=== PATIENT | female | born 1940 | race Caucasian/White ===

== ENCOUNTER 2017-04-08 15:26 | Observation (INO) ==
[2017-04-08] MEDS ORDERED: Aspirin 81 MG TAB.CHEW PO ONE (15:49)
[2017-04-08] MEDS ORDERED: Nitroglycerin 0.4 MG TAB.SUBL SL ONE (15:49)
--- NOTE | 2017-04-08 15:51 | Emergency Department Note ---
Disposition Clinical Impression: History of lung cancer Chest pain Qualifiers: Chest pain type: unspecified Qualified Code(s): R07.9 - Chest pain, unspecified Disposition: Admitted As Inpatient Condition: Good Referrals: NONE,PCP [Primary Care Provider] - Forms: ED Satisfaction Letter General Adult HPI - General Chief complaint: ED Chest Pain Stated complaint: chest discomfort CP Time Seen by Provider: 04/08/17 15:39 Source: patient Limitations: no limitations Nursing Notes Reviewed: Yes Vital Signs Reviewed: Yes - History of Present Illness HPI Narrative: 76 y/o female who reports 2 days of substernal chest discomfort. She reports it feels like "really bad indigestion". She reports feeling this a couple of years ago which ended up being a MS requiring a stent. Her other medical problems include HTN and HLD and lung cancer. She has had recurrent lung cancer with a right upper lobe resection. She is currently inoperable and her tumor size has reduced as of her last CT. Current oncologist is Dr Mejia in [place]. Not a diabetic. She took nitro at home which helped her pain. She currently is having a 4/10 pain. She is on 3L of O2 at all times. Radiation: non-radiation Pain Severity: moderate Pain Scale: 4 Consistency: intermittent Improves with: nothing Worsens with: nothing - Related Data Home Medications Medication Instructions Recorded Confirmed Albuterol Sulfate [Ventolin Hfa] 18 gm IH 05/26/16 Budesonide/Formoterol 160/4.5 2 puff IH BIDR 05/26/16 05/26/16 [Symbicort 160/4.5] Clopidogrel [Plavix] 75 mg PO DAILY 05/26/16 05/26/16 Furosemide [Lasix] 20 mg PO 05/26/16 Lisinopril [Zestril] 20 mg PO BID 05/26/16 05/26/16 Metoprolol Tartrate 100 mg PO BID 05/26/16 05/26/16 Rosuvastatin Calcium [Crestor] 10 mg PO 05/26/16 Allergies Allergy/AdvReac Type Severity Reaction Status Date / Time No Known Allergies Allergy Verified 04/08/17 15:35 All systems ED: reviewed and negative except as stated. Constitutional: Denies: fever ENT ED: Denies: throat pain Cardiovascular: Reports: chest pain Gastrointestinal: Denies: abdominal pain Musculoskeletal: Denies: back pain Integumentary: Denies: rash Neurological: Denies: headache Endocrine: Reports: fatigue Past Medical History - Past Medical History Medical history: Reports: cancer, COPD, hyperlipidemia, hypertension, valvular heart disease Surgical history: Reports: other (Bilateral lens implants) Psychiatric history: Reports: no psych history - Social History Smoking Status: Former smoker Smokeless Tobacco Status: No Alcohol use: Reports: none Drug use: Reports: none Physical Exam - General Limitations: no limitations General appearance: alert, in no apparent distress - Head Head exam: atraumatic - Eye Eye exam: Present: normal appearance - ENT ENT exam: normal exam - Neck Neck exam: Present: normal inspection - Chest Chest inspection: Present: other (right sided scar consistent with lung resection) - Respiratory Respiratory exam: Present: normal lung sounds bilaterally. Absent: respiratory distress - Cardiovascular Cardiovascular exam: Present: regular rate, normal rhythm - Abdominal Exam Abdominal exam: Present: soft, Non-Tender - Extremities Exam Extremities exam: Present: normal inspection - Neurological Exam Neurological exam: Present: alert, oriented X3 - Psychiatric Psychiatric exam: Present: normal affect, normal mood - Skin Skin exam: Present: warm, dry Course Course Narrative: EKG shows old anterior Q waves w/o current ST changes. No T wave inversions. She is not diaphoretic and appears well. Will do cardiac workup and a D dimer and CXR. D dimer is 673 which is normal for a 76 year old female according to the age adjusted D-dimer. As she is not hypoxic and she is low risk, PE has effectively been ruled out. Troponin is 0.00. Will be admitted to the hospital for a CP rule out. Accepted by Marybeth Morgan for admission. Vital Signs Temperature 97.8 F 04/08/17 15:29 Pulse Rate 67 04/08/17 15:29 Respiratory Rate 20 04/08/17 15:29 Blood Pressure 185/85 04/08/17 15:29 O2 Sat by Pulse Oximetry 96 04/08/17 15:29 Temperature 97.8 F 04/08/17 15:29 Pulse Rate 62 04/08/17 17:25 Respiratory Rate 14 04/08/17 17:25 Blood Pressure 165/80 04/08/17 17:25 O2 Sat by Pulse Oximetry 95 04/08/17 17:25 Oxygen Delivery Oxygen Delivery Nasal Cannula Medical Decision Making - Medical Records Medical records reviewed: Yes I reviewed the patient's medical records. - Lab Data Lab results reviewed: Yes I reviewed the patient's lab results. Result diagrams: 04/08/17 16:52 04/08/17 16:52 Lab Results 04/08/17 04/08/17 04/08/17 Range/Units 16:52 16:52 16:52 WBC (4.3-11.1) K/mcL RBC (3.82-4.97) M/mcL Hgb (11.5-15.4) g/dL Hct (35.3-44.9) % MCV (83.0-100.0) fL MCH (28.0-33.3) pg MCHC (31.6-35.5) g/dL RDW (11.5-14.5) % Plt Count (140-400) K/mcL MPV (9.4-12.4) fL Immature Gran % (0-4) % Seg Neutrophils % % Lymphocytes % % Monocytes % % Eosinophils % % Basophils % % Neutrophils # (1.6-8.9) K/mcL Lymphocytes # (0.6-4.6) K/mcL Monocytes # (0.0-1.3) K/mcL Eosinophils # (0.0-0.6) K/mcL Basophils # (0.0-0.2) K/mcL PT 10.5 (9.4-12.1) Seconds INR 1.0 APTT 28.0 (26.0-36.0) Seconds D-Dimer 673 H (0-500) ng/mLFEU Sodium 140 (136-145) mEq/L Potassium 3.5 (3.5-4.5) mEq/L Chloride 98 (98-109) mEq/L Carbon Dioxide 33 H (19-29) mEq/L BUN 17 (7-20) mg/dL Creatinine 0.93 (0.57-1.11) mg/dL Est GFR ( Amer) > 60 (> 60) Est GFR (Non-Af Amer) 59 L (> 60) BUN/Creatinine Ratio 18 (6-26) Glucose 149 H (70-99) mg/dL Calculated Osmolality 294 (280-300) Calcium 9.7 (8.6-10.8) mg/dL Total Bilirubin 0.4 (0.2-1.2) mg/dL Direct Bilirubin 0.2 (0.0-0.5) mg/dL Indirect Bilirubin 0.2 (0.0-1.2) mg/dL AST 19 (5-34) Units/L ALT 18 (0-55) Units/L Alkaline Phosphatase 128 H (38-126) Units/L Troponin I (0-0.03) ng/mL B-Natriuretic Peptide 195 H (0-100) pg/mL Serum Total Protein 6.9 (6.0-8.3) g/dL Albumin 3.2 L (3.5-5.0) g/dL Globulin 3.7 H (2.4-3.5) g/dL Albumin/Globulin Ratio 0.9 L (1.1-2.2) Amylase 55 (25-125) Units/L 04/08/17 04/08/17 Range/Units 16:52 16:52 WBC 4.6 (4.3-11.1) K/mcL RBC 4.49 (3.82-4.97) M/mcL Hgb 13.0 (11.5-15.4) g/dL Hct 40.8 (35.3-44.9) % MCV 90.9 (83.0-100.0) fL MCH 29.0 (28.0-33.3) pg MCHC 31.9 (31.6-35.5) g/dL RDW 13.0 (11.5-14.5) % Plt Count 157 (140-400) K/mcL MPV 10.9 (9.4-12.4) fL Immature Gran % 0.4 (0-4) % Seg Neutrophils % 66.3 % Lymphocytes % 26.2 % Monocytes % 5.6 % Eosinophils % 1.1 % Basophils % 0.4 % Neutrophils # 3.1 (1.6-8.9) K/mcL Lymphocytes # 1.2 (0.6-4.6) K/mcL Monocytes # 0.3 (0.0-1.3) K/mcL Eosinophils # 0.1 (0.0-0.6) K/mcL Basophils # 0.0 (0.0-0.2) K/mcL PT (9.4-12.1) Seconds INR APTT (26.0-36.0) Seconds D-Dimer (0-500) ng/mLFEU Sodium (136-145) mEq/L Potassium (3.5-4.5) mEq/L Chloride (98-109) mEq/L Carbon Dioxide (19-29) mEq/L BUN (7-20) mg/dL Creatinine (0.57-1.11) mg/dL Est GFR ( Amer) (> 60) Est GFR (Non-Af Amer) (> 60) BUN/Creatinine Ratio (6-26) Glucose (70-99) mg/dL Calculated Osmolality (280-300) Calcium (8.6-10.8) mg/dL Total Bilirubin (0.2-1.2) mg/dL Direct Bilirubin (0.0-0.5) mg/dL Indirect Bilirubin (0.0-1.2) mg/dL AST (5-34) Units/L ALT (0-55) Units/L Alkaline Phosphatase (38-126) Units/L Troponin I 0.00 (0-0.03) ng/mL B-Natriuretic Peptide (0-100) pg/mL Serum Total Protein (6.0-8.3) g/dL Albumin (3.5-5.0) g/dL Globulin (2.4-3.5) g/dL Albumin/Globulin Ratio (1.1-2.2) Amylase (25-125) Units/L - Radiology Data Radiology results reviewed: Yes I reviewed the patient's radiology results. - EKG Data EKG #1 EKG attestation: Yes I reviewed and interpreted this EKG. EKG shows normal: sinus rhythm Rate: normal Rhythm: NSR Q waves: v1, v2, v3 When compared to previous EKG there are: no significant changes Interpretation: unchanged when compared to prior tracing (date)
--- NOTE | 2017-04-08 16:41 | Emergency Department Note ---
START Narrative - START START: I examined this patient and my medical decision-making was reviewed with the Resident Physician. I agree with the documented findings, disposition and treatment plan as described except to the extent set forth below. 76 showed female presents emergency room for 2-3 day history of chest discomfort. She describes this as more of an indigestion type feeling. Similar to her previous heart problems. She has no active chest pain. States sometimes she has some pressure in her chest. EKG was nondiagnostic. The patient will need be admitted for further observation and workup of this chest pain and chest discomfort.
[2017-04-08 17:05] LABS: Basophils % 0.4 %; Eosinophils # 0.1 K/mcL (0.0-0.6); Eosinophils % 1.1 %; Hematocrit 40.8 % (35.3-44.9); Immature Granulocytes % 0.4 % (0-4); Lymphocytes # 1.2 K/mcL (0.6-4.6); Lymphocytes % 26.2 %; Mean Corpuscular HGB Conc 31.9 g/dL (31.6-35.5); Mean Corpuscular Volume 90.9 fL (83.0-100.0); Mean Platelet Volume 10.9 fL (9.4-12.4); Monocytes # 0.3 K/mcL (0.0-1.3); Monocytes % 5.6 %; Neutrophils # 3.1 K/mcL (1.6-8.9); Platelet Count 157 K/mcL (140-400); Red Blood Count 4.49 M/mcL (3.82-4.97); Segmented Neutrophils % 66.3 %
[2017-04-08 17:10] LABS: Prothrombin Time 10.5 Seconds (9.4-12.1)
[2017-04-08 17:20] LABS: Alanine Aminotransferase 18 Units/L (0-55); Albumin 3.2 g/dL (3.5-5.0); Albumin/Globulin Ratio 0.9 (1.1-2.2); Alkaline Phosphatase 128 Units/L (38-126); Amylase 55 Units/L (25-125); Aspartate Amino Transferase 19 Units/L (5-34); BUN/Creatinine Ratio 18 (6-26); Bilirubin,Direct 0.2 mg/dL (0.0-0.5); Bilirubin,Indirect 0.2 mg/dL (0.0-1.2); Bilirubin,Total 0.4 mg/dL (0.2-1.2); Blood Urea Nitrogen 17 mg/dL (7-20); Calcium 9.7 mg/dL (8.6-10.8); Carbon Dioxide 33 mEq/L (19-29); Chloride 98 mEq/L (98-109); Globulin 3.7 g/dL (2.4-3.5); Glucose 149 mg/dL (70-99); Osmolality,Calculated 294 (280-300); Potassium 3.5 mEq/L (3.5-4.5); Sodium 140 mEq/L (136-145); Total Protein 6.9 g/dL (6.0-8.3); eGFR For African Americans > 60 (> 60); eGFR For Non-African Americans 59 (> 60)
[2017-04-08] MEDS ORDERED: Naloxone 0.4 MG/ML INJ IVP PRN (21:28)
--- NOTE | 2017-04-08 22:58 | Internal Med History&Physical ---
<Marybeth Morgan - Last Filed: 04/08/17 23:17> Date of Encounter: 04/08/17 Time of Encounter: 22:49 Assessment and Plan (1) Chest pain Current visit: Yes Status: Acute 1 she is experiencing substernal chest pain for the past 2 days describing it as really bad indigestion. She has a history of AR in the past with 2 stent placement. She also strong family history of cardiac disease with several brothers dying of AR, most recent sibling this January. Both parents with history of AR. History of hypertension hyperlipidemia. First troponin is 0 we will continue to trend 2 we will obtain cardiac echo 3 continue his cardiac monitoring 4 we will obtain a CTA to rule out possibility of PE-patient is high risk with history of cancer, 2 day history of shortness of breath and chest pain, d-dimer 673. 5 continue with Plavix and statin and beta osiel 6. If negative for PE we will perform cardiac stress test Qualifiers: Chest pain type: unspecified Qualified Code(s): R07.9 - Chest pain, unspecified (2) COPD (chronic obstructive pulmonary disease) Current visit: No Status: Chronic 1 continue with oxygen 2 continue with bronchodilators Qualifiers: COPD type: emphysema Emphysema type: unspecified Qualified Code(s): J43.9 - Emphysema, unspecified (3) History of lung cancer Current visit: No Status: Chronic 1 she follows with oncologist in [place]. We will continue with present regime and have patient follow up as outpatient (4) HTN (hypertension) Current visit: No Status: Chronic Continue with lisinopril metoprolol Low-sodium diet Qualifiers: Hypertension type: essential hypertension Qualified Code(s): I10 - Essential (primary) hypertension (5) DVT prophylaxis Current visit: Yes Status: Acute Lovenox [facility] Internal Medicine - H&P: HPI Chief complaint: CP Admitted From: Emergency Dept Plans for Post Hospital Care: Home History of present illness: Ms. 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 According to the patient she has been experiencing 2 days of substernal chest discomfort which she describes as really bad indigestion. There are no aggravating or relieving factors as nonradiating She is concerned because this feels similar to the pain she experienced at her last AR requiring stents. She denies any associated symptoms of diaphoresis lightheadedness. She has had some shortness of breath however she feels that this is chronic. She is oxygen dependent on 3 L at all times. She denies any fevers chills vomiting diarrhea or abdominal pain. She did take nitroglycerin at home which did help with her pain. She presented to the ER with above complaints. According to the ER records lab work no leukocytosis chemistry unremarkable BNP was 195 troponin was 0 d-dimer was 673. EKG with no ST-T wave abnormalities She has been admitted for further workup and evaluation. Presently patient has conversational dyspnea she does complain of some chest pressure 3/10 she does admit to experiencing palpitations at times. Her lung sounds are diminished throughout heart sounds are regular S1 and S2 with no rubs clicks gallops murmurs noted. Abdomen soft nontender no pedal edema noted. She is hemodynamically stable at this time. I reviewed this case with Dr. Finn who agrees with plan Past Med Surg Social Fam HX - Past Medical History Medical history: cancer, COPD, coronary artery disease, hyperlipidemia, hypertension, myocardial infarction, valvular heart disease Psychiatric history: no psych history - Past Surgical History Surgical History: angioplasty/stent, appendectomy, cataract, hysterectomy, other - Social History Smoking Status: Former smoker Smokeless Tobacco Status: No Alcohol use: none Drug use: none - Family History Father Living Status: Cause of : AR Hx Family Cardiac Disorders: Yes (AR) Mother Living Status: Cause of : AR Hx Family Cardiac Disorders: Yes Sister Hx Family Cardiac Disorders: Yes (AR AT 60) Internal Medicine - H&P: Meds Albuterol Sulfate [Ventolin Hfa] 2 puff IH Q4H PRN 05/26/16 [History] Budesonide/Formoterol 160/4.5 [Symbicort 160/4.5] 2 puff IH BIDR 05/26/16 [ History] Clopidogrel [Plavix] 75 mg PO DAILY 05/26/16 [History] Furosemide [Lasix] 20 mg PO DAILY PRN 05/26/16 [History] Lisinopril [Zestril] 20 mg PO BID 05/26/16 [History] Rosuvastatin Calcium [Crestor] 10 mg PO HS 05/26/16 [History] Levothyroxine [Synthroid] 25 mcg PO 0630 04/08/17 [History] Magnesium Oxide [Mag-Ox] 400 mg PO BID 04/08/17 [History] Metoprolol [Lopressor] 100 mg PO BID 04/08/17 [History] Oxygen 3 l NS AD 04/08/17 [History] 3 Allergy/AdvReac Type Severity Reaction Status Date / Time No Known Allergies Allergy Verified 04/08/17 15:35 All Systems PM: A 10-system review of systems was performed and is negative for pertinent findings except as documented above in the HPI. - Constitutional Constitutional: fatigue - EENT Eyes: no change in vision, no discharge, no pain, no photophobia - Cardiovascular Cardiovascular ROS IM: chest pain, dyspnea, palpitations - Respiratory Respiratory: dyspnea - Gastrointestinal Gastrointestinal: heartburn - Genitourinary Genitourinary: no change in urinary stream, no dysuria, no flank pain, no hematuria - Musculoskeletal Musculoskeletal ROS IM: no numbness, no tingling - Integumentary Integumentary IM: no rash, no unusual bruising - Neurological Neurological ROS: no confusion, no convulsions, no focal weakness, no numbness, no tingling, no tremor(s) - Hematologic/Lymphatic Hematologic/Lymphatic: no easy bruising - Constitutional Vitals: Temp Pulse Resp BP Pulse Ox 97.8 F 62 16 169/66 95 04/08/17 15:29 04/08/17 17:25 04/08/17 19:19 04/08/17 19:19 04/08/17 17:25 General appearance: Present: A&O X 3, answers questions appropriately - Head Head exam: Present: atraumatic, normocephalic - Eye Eye exam: Present: PERRL, conjuntiva pink, sclera anicteric Pupils: Present: PERRL - Neck Neck exam general surgery: Present: supple, trachea midline. Absent: lymphadenopathy - Respiratory Respiratory exam: Present: decreased breath sounds. Absent: accessory muscle use, rales, rhonchi, wheezes - Cardiovascular Cardiovascular exam: Present: RRR, +S1, +S2. Absent: diastolic murmur, gallop, rubs, systolic murmur - GI/Abdominal GI/Abdominal exam: Present: normal bowel sounds, soft, no peritoneal signs. Absent: distended, tenderness - Extremities Exam Extremities exam: Present: warm, radial pulses palpable and symmetrical. Absent : calf tenderness, cyanotic, pedal edema - Neurological Exam Neurological exam: Present: CN II-XII intact, oriented X3, no focal deficits. Absent: pronater drift, facial droop, speech deficit - Skin Skin exam: Present: dry, intact Internal Med - H&P Results - Labs CBC & Chem 7: 04/08/17 16:52 04/08/17 16:52 Labs: Cardiac Enzymes 04/08/17 Range/Units 22:05 Troponin I 0.01 (0-0.03) ng/mL - EKG Data EKG shows normal: sinus rhythm - Diagnostic Studies Other Images Additional comments: Chest X-Ray 04/08/17 15:49 IMPRESSION: Negative portable study PE D/ / Maureen Christian Cha, MD / Maureen Christian Cha, MD Interpreting Provider: Maureen Christian Cha, MD <Manoj Finn - Last Filed: 04/09/17 04:16> Date of Encounter: 04/08/17 Time of Encounter: 23:40 - Cardiovascular Cardiovascular ROS IM: chest pain, dyspnea - Respiratory Respiratory: dyspnea, pain on inspiration, no hemoptysis - Constitutional Vitals: Temp Pulse Resp BP Pulse Ox 97.9 F 55 16 189/82 97 04/08/17 23:05 04/08/17 23:05 04/08/17 23:10 04/08/17 23:05 04/08/17 23:10 General appearance: Present: cooperative, A&O X 3, pleasant, no acute distress - Respiratory Respiratory exam: Present: decreased breath sounds, CTAB. Absent: chest wall tenderness, rales, respiratory distress, rhonchi, wheezes - Cardiovascular Cardiovascular exam: Present: RRR, +S1, +S2 - Extremities Exam Extremities exam: Absent: calf tenderness, joint swelling, tenderness Internal Med - H&P Results - Labs CBC & Chem 7: 04/08/17 16:52 04/08/17 16:52 Labs: Cardiac Enzymes 04/08/17 Range/Units 22:05 Troponin I 0.01 (0-0.03) ng/mL - Diagnostic Studies Chest x-ray Status: image reviewed by me (negative) - Attending Attestation I discussed the patient [place], PMH, ROS, lab data, and exam findings with Marybeth Morgan CNP. I then saw and examined patient independently as well. Patient has history of CAD and her symptoms are somewhat worrisome for CAD. However, given her lung cancer history, elevated D-Dimer, and symptoms she describes, I am more concerned for PE. CTA has been done several hours ago, but results are still unavailable. I called Radiology looking for results and am awaiting feedback. I would postpone stress testing until we can confirm absence of PE before proceeding with that route. Other than my comments above and noted exam findings, I agree with Marybeth's assessment and plan.
[2017-04-08] MEDS: Budesonide/Formoterol 160/4.5 MDI IH SCH (23:09)
[2017-04-09 04:41] LABS: Basophils % 0.3 %; Eosinophils # 0.1 K/mcL (0.0-0.6); Eosinophils % 1.6 %; Hematocrit 38.9 % (35.3-44.9); Immature Granulocytes % 0.3 % (0-4); Immature Platelets 9.5 % (1.1-6.1); Lymphocytes # 1.1 K/mcL (0.6-4.6); Mean Corpuscular HGB Conc 30.8 g/dL (31.6-35.5); Mean Corpuscular Hemoglobin 28.4 pg (28.0-33.3); Mean Platelet Volume 11.8 fL (9.4-12.4); Monocytes # 0.4 K/mcL (0.0-1.3); Monocytes % 9.3 %; Neutrophils # 2.2 K/mcL (1.6-8.9); Platelet Count 127 K/mcL (140-400); Red Blood Count 4.23 M/mcL (3.82-4.97); Red Cell Distribution Width 13.1 % (11.5-14.5); Segmented Neutrophils % 58.5 %
[2017-04-09 05:47] LABS: Platelet Estimate Normal (Normal)
[2017-04-09] MEDS: Levothyroxine 25 MCG TABLET PO SCH (06:01)
[2017-04-09] MEDS: *HR* Enoxaparin 40 MG/0.4 ML SYRINGE SQ SCH (06:01)
[2017-04-09 06:38] LABS: BUN/Creatinine Ratio 18 (6-26); Blood Urea Nitrogen 14 mg/dL (7-20); Calcium 9.2 mg/dL (8.6-10.8); Carbon Dioxide 29 mEq/L (19-29); Chloride 102 mEq/L (98-109); Chol/HDL Ratio 5.4 (0-4.9); Cholesterol 254 mg/dL (< 200); Glucose 112 mg/dL (70-99); HDL Cholesterol 47 mg/dL (40-59); LDL Cholesterol,Calculated 157 mg/dL (0-99); Magnesium 1.6 mg/dL (1.6-2.6); Osmolality,Calculated 289 (280-300); Potassium 3.9 mEq/L (3.5-4.5); Sodium 139 mEq/L (136-145); Triglycerides 252 mg/dL (< 150); eGFR For African Americans > 60 (> 60); eGFR For Non-African Americans > 60 (> 60)
[2017-04-09] MEDS: Budesonide/Formoterol 160/4.5 MDI IH SCH ×2 (07:44→20:54)
[2017-04-09] MEDS: Metoprolol 100 MG TABLET PO SCH ×2 (13:07→21:21)
[2017-04-09] MEDS: Lisinopril 20 MG TABLET PO SCH ×2 (13:07→21:21)
[2017-04-09] MEDS: Magnesium Oxide 400 MG TABLET PO SCH ×2 (13:07→21:20)
--- NOTE | 2017-04-09 17:47 | Internal Med Progress Note ---
Date of Encounter: 04/09/17 Time of Encounter: 15:50 - Assessment and plan (1) Chest pain Current Visit: Yes Status: Acute Assessment and plan: Pt denies chest pain now. 3 day history of substernal chest heaviness without radiation, n/v, or diaphoresis. Onset while at rest, no aggravating or relieving factors. Pt has lung ca and is at baseline level of SOB and is not requiring 02 above her normal 3L. Pain is not reproducible. Prior OR in 2009, states this feels the same, last stress 5 years ago. D-dimer elevated, pt at increased risk of PE due to lung ca, CTA chest negative for PE. Noted were postoperative changes, diffuse emphysematous changes, and boerderline AAA, cardiomegaly, and diffuse atherosclerotic disease. Pt will need to follow up outpt on the AAA. Echo shows LVEF 50-55% with mild LV DD, mild AR, AAA is noted but not well visualized. Troponins were negative 3. Considering patient's history, stress test is not unreasonable. She will be nothing by mouth after midnight for stress test in the morning. 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 Qualifiers: Chest pain type: unspecified Qualified Code(s): R07.9 - Chest pain, unspecified (2) Lung cancer Current Visit: Yes Status: Acute Qualifiers: Qualified Code(s): C34.90 - Malignant neoplasm of unspecified part of unspecified bronchus or lung (3) HTN (hypertension) Current Visit: No Status: Chronic Assessment and plan: Well controlled. Continue home medications. Qualifiers: Hypertension type: essential hypertension Qualified Code(s): I10 - Essential (primary) hypertension (4) COPD (chronic obstructive pulmonary disease) Current Visit: No Status: Chronic Assessment and plan: No acute exacerbation. Continue inhalers from home. O2 as needed to maintain sats greater than 92%. Patient currently wears 3 L at home. Qualifiers: COPD type: emphysema Emphysema type: unspecified Qualified Code(s): J43.9 - Emphysema, unspecified (5) DVT prophylaxis Current Visit: Yes Status: Acute Assessment and plan: Lovenox subcutaneous. - Time Spent With Patient less than 15 minutes - Subjective Interval history: Pt was seen and assessed at 1550. She is alert and awake, flat affect. She denies chest pain at this times, but states that she has had substernal chest heaviness which felt the same as her OR in 2008. She had LHC here and 2 stents placed at that time. Chest pain started about 3 days ago while at rest. She denies any change in SOB above baseline due to lung cancer. She normally wears 3 liters of 02 at home and is not requiring more to maintain her sats. She denies n/v or diaphoresis. Last stress test over 5 years ago. - Constitutional Vitals: Temp Pulse Resp BP Pulse Ox 98.0 F 88 16 131/75 98 04/09/17 14:48 04/09/17 14:48 04/09/17 14:48 04/09/17 14:48 04/09/17 14:48 General appearance: Present: cooperative, A&O X 3, pleasant, no acute distress - Head Head exam: Present: atraumatic, normal inspection, normocephalic - Eye Eye exam: Present: normal appearance, conjuntiva pink, sclera anicteric - Neck Neck exam general surgery: Present: supple, trachea midline. Absent: lymphadenopathy - Respiratory Respiratory exam: Present: CTAB. Absent: accessory muscle use, rales, rhonchi, wheezes - Cardiovascular Cardiovascular exam: Present: RRR, +S1, +S2. Absent: diastolic murmur, gallop, rubs, systolic murmur - GI/Abdominal GI/Abdominal exam: Present: normal bowel sounds, soft, no peritoneal signs. Absent: distended, hernia, hepatomegaly, tenderness - Extremities Exam Extremities exam: Present: normal capillary refill, warm, radial pulses palpable and symmetrical. Absent: calf tenderness, cyanotic, pedal edema - Neurological Exam Neurological exam: Present: alert, oriented X3, no focal deficits. Absent: altered, facial droop, speech deficit - Skin Skin exam: Present: dry, intact, normal color, warm. Absent: rash Internal Medicine: Result - Labs CBC & Chem 7: 04/09/17 03:52 04/09/17 03:52 Labs: Short CBC 04/09/17 Range/Units 03:52 WBC 3.8 L (4.3-11.1) K/mcL Hgb 12.0 (11.5-15.4) g/dL Hct 38.9 (35.3-44.9) % Plt Count 127 L (140-400) K/mcL Neutrophils # 2.2 (1.6-8.9) K/mcL BMP 04/09/17 03:52 Sodium 139 Potassium 3.9 Chloride 102 Carbon Dioxide 29 BUN 14 Creatinine 0.78 Glucose 112 H Calcium 9.2 Cardiac Enzymes 04/08/17 04/09/17 Range/Units 22:05 03:52 Troponin I 0.01 0.01 (0-0.03) ng/mL - ABG Interpretation ABG results: PT/INR, D-dimer PT 10.5 Seconds (9.4-12.1) 04/08/17 16:52 D-Dimer 673 ng/mLFEU (0-500) H 04/08/17 16:52 - Impressions Impressions Chest CTA 04/09/17 22:44 IMPRESSION: No pulmonary embolism is identified. Enlargement of the pulmonary arteries may be related to pulmonary arterial hypertension. Postoperative changes from partial right pneumonectomy, without spiculated mass or lymphadenopathy in the chest. Diffuse emphysematous changes with biapical scarring and air trapping noted. Borderline ascending thoracic aortic aneurysm measuring 4.1 x 4.1 cm on this nongated study. Diffuse atherosclerotic disease including coronary involvement with cardiomegaly. D/ / 04/09/2017 08:25:22 Inocente Hernandez MD / osmany Interpreting Provider: Inocente Hernandez MD Consult Discharge Plan - Plan Referrals: NONE,PCP [Primary Care Provider] -
[2017-04-10 05:18] LABS: Basophils % 0.5 %; Eosinophils # 0.1 K/mcL (0.0-0.6); Eosinophils % 1.5 %; Hematocrit 39.4 % (35.3-44.9); Hemoglobin 12.4 g/dL (11.5-15.4); Immature Granulocytes % 0.3 % (0-4); Lymphocytes # 1.1 K/mcL (0.6-4.6); Mean Corpuscular HGB Conc 31.5 g/dL (31.6-35.5); Mean Corpuscular Hemoglobin 29.3 pg (28.0-33.3); Mean Corpuscular Volume 93.1 fL (83.0-100.0); Mean Platelet Volume 10.8 fL (9.4-12.4); Monocytes # 0.3 K/mcL (0.0-1.3); Monocytes % 7.9 %; Neutrophils # 2.4 K/mcL (1.6-8.9); Platelet Count 142 K/mcL (140-400); Red Blood Count 4.23 M/mcL (3.82-4.97); Red Cell Distribution Width 13.2 % (11.5-14.5); Segmented Neutrophils % 60.8 %
[2017-04-10 05:29] LABS: Hemoglobin A1C 6.7 %
[2017-04-10 05:33] LABS: BUN/Creatinine Ratio 16 (6-26); Blood Urea Nitrogen 12 mg/dL (7-20); Calcium 9.4 mg/dL (8.6-10.8); Carbon Dioxide 33 mEq/L (19-29); Chloride 103 mEq/L (98-109); Chol/HDL Ratio 5.3 (0-4.9); Cholesterol 248 mg/dL (< 200); Glucose 110 mg/dL (70-99); HDL Cholesterol 47 mg/dL (40-59); LDL Cholesterol,Calculated 157 mg/dL (0-99); Osmolality,Calculated 298 (280-300); Potassium 4.1 mEq/L (3.5-4.5); Sodium 144 mEq/L (136-145); Triglycerides 220 mg/dL (< 150); eGFR For African Americans > 60 (> 60); eGFR For Non-African Americans > 60 (> 60)
[2017-04-10] MEDS ORDERED: Regadenoson 0.4 MG/5 ML SYRINGE IVP ONE (05:42)
[2017-04-10] MEDS: Levothyroxine 25 MCG TABLET PO SCH (06:14)
[2017-04-10] MEDS: *HR* Enoxaparin 40 MG/0.4 ML SYRINGE SQ SCH (06:14)
[2017-04-10] MEDS: Budesonide/Formoterol 160/4.5 MDI IH SCH (10:27)
--- NOTE | 2017-04-10 10:56 | Nuclear Medicine Stress Report ---
Regadenoson Nuclear Stress Name: Lawanda Cook Date of Study: 04/10/2017 Date: 1940 Ht: 64.0 in Medical Record#: [id number] Age: 76 Wt: 208.0 lb Gender: Female Order #: [id number] Location: [facility] Room: [facility] Supervising Provider: Rajinder Bowden CNP Reading Physician: Arun Kirkpatrick DO, FAC, [facility] Ordering Physician: Rosanna Krishna CNP Stress Technologist: Flaca Villegas, MED Service Counter Cashier: Mary Mcnulty Indications: Chest Pain Impression: Pharmacologic stress ECG is negative for ischemia at level of heart rate achieved. Gated EF = 62%. Small sized, mild intensity, fixed inferolateral defect. Wall motion is normal. Findings are consistent with artifact. Small sized, mild intensity, fixed mid to apical anteroseptal defect. Wall motion is normal. Findings are consistent with artifact. Perfusion imaging was negative for ischemia or infarct. History: Hypertension Hypercholesteremia Prior PCI Stress Test Summary: Stress Test Type: Pharmacologic Regadenoson 0.4mg/5ml given IV Baseline Information: Initial Heart Rate: 57 Blood Pressure: 150/90 Stress Information: Test Terminated Due to (primary): As per protocol Maximum Blood Pressure: 120/80 Maximum Heart Rate: 74 Percent Maximum Heart Rate Achieved: 51 Double Product: 8880 METS Reached: 1 Symptoms: No chest symptoms Nuclear Summary: SPECT myocardial perfusion imaging using Tc99m Sestamibi given intravenously was performed at rest and following cardiac stress testing. The resting images were obtained following initial dose of 11.1 mCi. Following stress an additional dose of 35.0 mCi was given at peak exercise or 30 seconds post regadenoson infusion. Medication Given: Time Medication Dose Units Route Findings: Stress Note * Resting ECG demonstrated normal sinus rhythm. * No baseline arrhythmias were noted. * Pharmacologic stress ECG is negative for ischemia at level of heart rate achieved. * No arrhythmias were noted during stress. * Patient had no chest pain during stress. * Normal hemodynamic responses to pharmacologic stress. Study Quality * Study quality is average. Gated EF % * Gated EF = 62%. Left Ventricle * The left ventricle is not dilated. LVEDV = 112 mL. * Normal wall motion. Inferior Perfusion Rest * The inferolateral segment shows a mild reduction in perfusion. Inferior Perfusion Stress * The inferolateral segment shows a mild reduction in perfusion. TID * No evidence of transient ischemic dilatation. TID ratio = 0.92. Lung Uptake * There is no evidence of increase lung uptake. Anterior Perfusion Rest * The mid anteroseptal segment shows a mild reduction in perfusion. Anterior Perfusion Stress * The mid anteroseptal segment shows a mild reduction in perfusion. Updated by Arun Kirkpatrick DO, FACRadha, RUBEN, PETER on 04/10/2017 10:49:06 AM electronically signed on 04/10/2017 10:50:03 AM with status of Final
[2017-04-10] MEDS: Lisinopril 20 MG TABLET PO SCH (11:43)
[2017-04-10] MEDS: Magnesium Oxide 400 MG TABLET PO SCH (11:44)
[2017-04-10] MEDS: Metoprolol 100 MG TABLET PO SCH (11:44)
[2017-04-10 14:46] VITALS: BP 151/83
--- NOTE | 2017-04-10 15:09 | Discharge Summary ---
Date of Encounter: 04/10/17 Time of Encounter: 13:00 - Discharge Diagnosis (1) Chest pain Priority: Primary Status: Acute Comments: Patient denies chest pain currently. Echocardiogram with preserved function, mild LVEDD, mild AR. Patient had 2 small areas consistent with artifact, gated EF 62%, perfusion imaging negative for ischemia or infarct. Pain is not reproducible to palpation, deep inspiration, or movement. Patient denies GERD symptoms. Chest x-ray was negative. Patient does have lung cancer bilaterally. Could be inflammatory changes causing the pain. Patient should follow up with primary care provider for continued evaluation. Qualifiers: Chest pain type: unspecified Qualified Code(s): R07.9 - Chest pain, unspecified (2) Lung cancer Priority: Secondary Status: Acute Comments: Patient reports lung cancer bilaterally. Patient follows up with oncology in [facility] Qualifiers: Laterality: unspecified laterality Lung location: unspecified part of lung Qualified Code(s): C34.90 - Malignant neoplasm of unspecified part of unspecified bronchus or lung (3) HTN (hypertension) Priority: Secondary Status: Chronic Comments: Chronic P continue home medications. Qualifiers: Hypertension type: essential hypertension Qualified Code(s): I10 - Essential (primary) hypertension (4) COPD (chronic obstructive pulmonary disease) Priority: Secondary Status: Chronic Comments: No acute exacerbation. Lungs are clear and she is not requiring supple oxygen to maintain her sats. Continue home medications. Qualifiers: COPD type: emphysema Emphysema type: unspecified Qualified Code(s): J43.9 - Emphysema, unspecified (5) DVT prophylaxis Priority: Secondary Status: Acute Comments: Lovenox subcutaneous. - Discharge Medications Home Medications: Albuterol Sulfate [Ventolin Hfa] 2 puff IH Q4H PRN 05/26/16 [History] Budesonide/Formoterol 160/4.5 [Symbicort 160/4.5] 2 puff IH BIDR 05/26/16 [ History] Clopidogrel [Plavix] 75 mg PO DAILY 05/26/16 [History] Furosemide [Lasix] 20 mg PO DAILY PRN 05/26/16 [History] Lisinopril [Zestril] 20 mg PO BID 05/26/16 [History] Rosuvastatin Calcium [Crestor] 10 mg PO HS 05/26/16 [History] Levothyroxine [Synthroid] 25 mcg PO 0630 04/08/17 [History] Magnesium Oxide [Mag-Ox] 400 mg PO BID 04/08/17 [History] Metoprolol [Lopressor] 100 mg PO BID 04/08/17 [History] Oxygen 3 l NS AD 04/08/17 [History] Allergies/Adverse Reactions: 3 Allergy/AdvReac Type Severity Reaction Status Date / Time No Known Allergies Allergy Verified 04/08/17 15:35 Procedures/tests Complete & Pending: Procedures Performed prior 72 hours Category Date Time Status CT angio chest [CT] Stat Cat Scan 04/09/17 22:44 Completed NM johnathon perf SPECT multi [NM] Routine Exams 04/10/17 05:42 Taken EV echocardiogram Routine Y 04/09/17 09:15 Completed SP pharm nuclear stress Routine Y 04/10/17 07:00 Completed Date of admission: 04/08/17 18:49 Primary care physician: PCP NONE Discharging clinician: Rosanna Krishna Anticipated date of discharge: 04/10/17 - Patient Status Disposition: Home, Self-Care Condition: Good Functional capacity at discharge: independent ambulation Overall status at discharge: patient is back to baseline - Discharge Instructions Instructions: Chest Pain (DC), Lung Cancer (DC), Chronic Hypertension (DC) Follow Up With: Inocente Sy MD [Partnered Physician] - 04/15/17 1:00 pm Additional Instructions: Follow-up with primary care and oncology as scheduled. Resume your normal home medications and activities as tolerated. Return to the emergency department as needed for any other problems or concerns or if your symptoms return or worsen. - Diet and Activity Activity: resume usual activities as tolerated Diet: advance to your usual diet Hospital course: Ms. 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 According to the patient she has been experiencing 2 days of substernal chest discomfort which she describes as really bad indigestion. There are no aggravating or relieving factors as nonradiating She is concerned because this feels similar to the pain she experienced at her last DC requiring stents. She denies any associated symptoms of diaphoresis lightheadedness. She has had some shortness of breath however she feels that this is chronic. At time of admission, patient had conversational dyspnea that had resolved by the time I assessed her. Echocardiogram shows preserved EF with mild AR, stress tests showed a gated EF of 62% with small sized, mild intensity defects that were consistent with artifact. Perfusion imaging was negative for ischemia or infarct. Patient denies chest pain at time of discharge and states that she had chest pain since the day before. She has baseline oxygen requirement at 3 L, she did not require supplemental above that. Her pain was not reproducible. Patient was at increased risk of PE due to lung cancer, d-dimer was elevated in the emergency department. CTA chest was negative for PE and noted in the exam were postoperative changes, diffuse emphysematous changes, and borderline AAA with cardiomegaly and diffuse vascular sclerotic disease. Patient has remained pain-free. She will follow-up for her lung cancer with oncology as O . She also will follow up with primary care provider this week. Her vital signs are stable and within normal limits. Labs are within normal limits and stable. Patient has a history of COPD and is there is no acute exacerbation at this time. She will continue her inhalers and her oxygen and her normal home medications. I recommended the patient follow up with her oncologist for evaluation of inflammatory changes in her chest and may be causing her chest pain. At this time there is no cardiac cause for her chest pain. She also will need to follow up with primary care for continued evaluation of her aortic aneurysm. Patient is stable and appropriate for discharge. - Time Spent with Patient Total time spent providing and/or coordinating discharge services: - Constitutional Vitals: Temp Pulse Resp BP Pulse Ox 98.5 F 56 16 151/83 97 04/10/17 14:45 04/10/17 14:45 04/10/17 14:45 04/10/17 14:45 04/10/17 14:45 General appearance: Present: cooperative, A&O X 3, pleasant, no acute distress - Head Head exam: Present: atraumatic, normal inspection, normocephalic - Eye Eye exam: Present: normal appearance, conjuntiva pink, sclera anicteric - Neck Neck exam general surgery: Present: normal inspection, supple, trachea midline. Absent: lymphadenopathy, tenderness - Respiratory Respiratory exam: Present: decreased breath sounds, CTAB. Absent: accessory muscle use, chest wall tenderness, rales, respiratory distress, rhonchi, wheezes - Cardiovascular Cardiovascular exam: Present: RRR, +S1, +S2. Absent: diastolic murmur, gallop, rubs, systolic murmur - GI/Abdominal GI/Abdominal exam: Present: normal bowel sounds, soft, no peritoneal signs. Absent: distended, hepatomegaly, tenderness - Extremities Exam Extremities exam: Present: normal capillary refill, normal inspection, warm, radial pulses palpable and symmetrical. Absent: calf tenderness, cyanotic, pedal edema, tenderness - Neurological Exam Neurological exam: Present: alert, oriented X3, no focal deficits. Absent: facial droop, speech deficit - Skin Skin exam: Present: dry, intact, normal color, warm. Absent: rash
--- NOTE | 2017-04-13 17:30 | Electrocardiograph Report ---
[place] [id number] Test Date: 2017-04-08 Pat Name: Lawanda Cook Department: 102 Room: 3B Gender: F Radiology Rn: Winifred : 1940 Requested By: Donaldo Centeno Order Number: [id number] Reading MD: Dequan Chester MD Measurements Intervals Tracy Rate: 63 P: 89 DE: 189 QRS: 16 QRSD: 106 T: 50 QT: 396 QTc: 404 Interpretive Statements SINUS RHYTHM \ BASELINE ARTIFACT Electronically Signed On 04-13-2017 17:28:12 EDT by Dequan Chester MD
== END 2017-04-10 18:51 | disposition home or self-care (01) ==
LOC: 3BNU 15:26 → EMEROO 15:26 → 3BNU 19:55
PROVIDERS: ADMIT Registered Nurse; ATTEND Registered Nurse